=== PATIENT | female | born 1930 | race Caucasian/White ===

== ENCOUNTER 2017-12-02 20:43 | Inpatient (IN) ==
[2017-12-02] MEDS ORDERED: Naloxone Inj 0.4 MG/ML Vial IV.PUSH PRN (23:18)
[2017-12-02] MEDS ORDERED: Bisacodyl 10 MG Supp RECTAL PRN (23:18)
[2017-12-02] MEDS ORDERED: Post-op Orders (for Pharmacy) OTHER ONE (23:18)
[2017-12-02] MEDS ORDERED: Sod Chloride 0.9% Inj 1,000 ML IV.CONT SCH (23:30)
[2017-12-02] MEDS: Acetaminophen 325 MG Tablet PO PRN (23:41)
[2017-12-03] MEDS: levETIRAcetam 500 MG Tablet PO SCH ×3 (01:22→21:05)
[2017-12-03 07:11] LABS: Baso # (Auto) 0.1 th/mm3 (0.0-0.2); Baso % (Auto) 0.8 % (0.0-2.0); Eos # (Auto) 0.1 th/mm3 (0.0-0.4); Hematocrit 37.6 % (35.0-46.0); Hemoglobin 13.1 gm/dL (11.6-15.3); Lymph # (Auto) 1.6 th/mm3 (1.0-4.8); Lymph % (Auto) 17.4 % (9.0-44.0); Mean Corpuscular HGB Conc 34.8 % (32.0-36.0); Mean Corpuscular Hemoglobin 31.4 pg (27.0-34.0); Mean Corpuscular Volume 90.2 fL (80.0-100.0); Mean Platelet Volume 9.7 fL (7.0-11.0); Mono # (Auto) 0.9 th/mm3 (0.0-0.9); Mono % (Auto) 9.9 % (0.0-8.0); Neut # (Auto) 6.5 th/mm3 (1.8-7.7); Neut % (Auto) 70.9 % (16.0-70.0); Platelet Count 166 th/mm3 (150-450); Red Blood Count 4.17 mil/mm3 (4.00-5.30); Red Cell Distribution Width 13.8 % (11.6-17.2); White Blood Count 9.2 th/mm3 (4.0-11.0)
[2017-12-03 07:27] LABS: Anion Gap 10 meq/L (5-15); Blood Urea Nitrogen 11 mg/dL (7-18); Calcium 7.9 mg/dL (8.5-10.1); Carbon Dioxide 23.9 meq/L (21.0-32.0); Chloride 109 meq/L (98-107); Glomerular Filtration Rate Greater Than 89 mL/min (>89); Glucose,Random 90 mg/dL (74-106); Potassium 3.2 meq/L (3.5-5.1); Sodium 143 meq/L (136-145)
--- NOTE | 2017-12-03 09:13 | CT ---
EXAM DATE: 12/03/2017 8:45 AM EDT AGE/SEX: 87 years / Female INDICATIONS: Trauma, subdural hematoma. CLINICAL DATA: This is the patient's initial encounter. Patient reports that signs and symptoms have been present for 1 day and indicates a pain score of 4/10. MEDICAL/SURGICAL HISTORY: . Basal cell carcinoma. None. RADIATION DOSE: 35.60 CTDI (mGy) COMPARISON: No prior exams available for comparison. TECHNIQUE: CT of the head without contrast. Using automated exposure control and adjustment of the mA and/or kV according to patient size, radiation dose was kept as low as reasonably achievable to ob tain optimal diagnostic quality images. DICOM format image data is available electronically for revi ew and comparison. FINDINGS: Cerebrum: Old left basal ganglia lacunar infarct. Moderate diffuse cerebral atrophy. The ventricles are normal for degree of atrophy. No evidence of midline shift, mass lesion, hemorrhage or acute infa rction. No extraaxial fluid collections are seen. Posterior Fossa: The cerebellum and brainstem are intact. The 4th ventricle is midline. The cerebe llopontine angle is unremarkable. Extracranial: The visualized portion of the orbits is intact. Skull: Partially imaged fracture of the right zygoma, right lateral orbital wall and right lateral m axillary wall with complete opacification of the right maxillary sinus in its visualized portions. So ft tissue hematoma overlying the right face. CONCLUSION: 1. Partially imaged right facial fractures, as above. 2. No acute intracranial abnormality. . Electronically signed by: Hector Gu MD 12/03/2017 9:12 AM EDT
[2017-12-03] MEDS: Senna/Docusate Sodium 8.6/50 MG Tablet PO SCH ×2 (09:24→21:05)
[2017-12-03] MEDS: Gabapentin 300 MG Capsule PO SCH ×3 (09:25→17:38)
--- NOTE | 2017-12-03 11:14 | P.NPEVAL ---
Patient History - Record/History Review Reason for Referral: The patient is a 87 year old right handed woman status post complicated mild traumatic brain injury secondary to a fall on 12/02/2017. At the time of this entry, there has been no information entered. She is referred for baseline neurobehavioral status examination per trauma protocol to assess cognitive, behavioral and emotional aspects of the injury and to provide treatment recommendations. [facility] - History History Provided By: Patient - Medical History Medical History: Medical History (Last Updated 12/02/17 @ 21:02 by Elizabeth Monroy RN) Basal cell carcinoma Carpal tunnel syndrome FHx: total knee replacement - Surgical History Surgical History: Surgical History (Last Updated 12/02/17 @ 21:02 by Elizabeth Monroy RN) S/P rotator cuff repair - Tobacco History Second Hand Smoke Exposure: No Smoking Status: Never smoker - Alcohol History How Often Do You Have a Drink Containing Alcohol: 4 or more times a week - Substance Use History Substance History: No History of Abuse - Travel History Recent Travel in the [place] Within the Last 8 Weeks: No Recent Travel Out of the Country Within the Last 8 Weeks: No - Immunization History Tetanus Immunization: <5 Years Hx Influenza Vaccine This Season: Yes Medications Active Medications Acetaminophen (Tylenol) 650 mg PO Q6HR PRN PRN Reason: PAIN 1-10 AND/OR FEVER >101F Last Admin: 12/02/17 23:41 Dose: 650 mg Al Hydroxide/Mg Hydroxide (Milk Of Magnesia Liq) 30 ml PO Q12H PRN PRN Reason: Mild Constipation Bisacodyl (Dulcolax Supp) 10 mg RECTAL DAILY PRN PRN Reason: SEVERE CONSITIPATION Cyclobenzaprine HCl (Flexeril) 5 mg PO Q8HR [facility] Gabapentin (Neurontin) 300 mg PO TID [facility] Last Admin: 12/03/17 09:25 Dose: 300 mg Lactulose (Lactulose Liq) 30 ml PO DAILY PRN PRN Reason: SEVERE CONSITIPATION Levetiracetam (Keppra) 500 mg PO BID [facility] Last Admin: 12/03/17 09:24 Dose: 500 mg Lidocaine HCl (Lidoderm 5% Patch.12 Hr) 1 patch T-DERMAL DAILY [facility] Naloxone HCl (Narcan Inj) 0.4 mg IV.PUSH UNSCH PRN PRN Reason: SEE LABEL COMMENTS Ondansetron HCl (Zofran Inj) 4 mg IV.PUSH Q6H PRN PRN Reason: NAUSEA OR VOMITING Pantoprazole Sodium (Protonix) 40 mg PO DAILY [facility] Last Admin: 12/03/17 09:25 Dose: 40 mg Patch Removal (Remove Old Patch) 1 each T-DERMAL HS [facility] Senna/Docusate Sodium (Mary Ellen-Colace) 1 tab PO BID [facility] Last Admin: 12/03/17 09:24 Dose: 1 tab Sennosides (Senokot) 17.2 mg PO Q12H PRN PRN Reason: Moderate Constipation Mental Status Assessment - Mental Status Orientation: oriented to: Self, Place, Time, Situation Mental Status: WFL: Thought processing, Language/interactions, Attention, Learning/memory, Problem-solving, Self-regulation, Other Absent: Hallucinations, Delusions Adjustment/Coping Assessment - Observation In terms of emotional functioning, the patient demonstrated normal adjustment. This patient demonstrated no signs of agitation, impulsivity or disinhibition, nor was there remarkable evidence of a formal thought disorder or psychosis. There was no evidence of depression or anxiety. Thought content was free from suicidal, homicidal or paranoid ideation, and thought processes were logical and goal-directed. The patients mood was euthymic, and her affect was stable and appropriate. The patient appears to possess adequate insight and awareness into their situation and within the limits of this brief evaluation, adequate judgment. - Goals/Team Members LTG Status: Deferred STG Status: Deferred Team Members: Neuropsychologist Behavior - Behavior Treatment Engagement: Average - Observation Behaviorally, the patient demonstrated no signs of agitation, impulsivity or disinhibition. There was no remarkable evidence of a formal thought disorder or psychosis. - Goals LTG Status: Deferred STG Status: Deferred - Team Members Team Members: Neuropsychologist Diagnosis/Discharge Plan - Diagnosis (1) Mild neurocognitive disorder due to traumatic brain injury Status: Acute Impression: 87 year old woman s/p complicated mild TBI 2T fall on 12/02/2017. [place] Level: Level VII Disinhibition Score: 14.00 Aggression Score: 14.00 Lability Score: 14.00 Agitated Behavior Total Score: 14 Maximizing Acute Care Outcome: It is recommended that the patient be monitored for emergent behavioral impulsivity as the medical condition evolves. This patients neuropathological challenges may limit rehabilitation potential going forward, and these challenges will require specialized therapeutic skills to maximize outcome. Additionally, the patients family is experiencing ongoing issues of adjustment given the traumatic nature of the injury, and they may benefit from ongoing psychological assistance. At this point in the recovery process, the patient does have cognitive capacity as the patient is able to understand a situation and its likely consequences, and she is able to manipulate information rationally. Cognitive capacity will be assessed throughout the recovery process. - Discharge Planning Anticipated Problems: Ongoing areas of concern will include behavioral impulsivity, lack of insight and judgment, which is expected to improve with time and treatment. Treatment Plan: This clinician will continue to follow with you throughout the course of this patients critical care treatment, and I will be available to meet with the patients family/support system to facilitate their understanding and the ongoing care of their family member. The goals of neuropsychological intervention shall be both educational and supportive to the family/support system as is deemed clinically appropriate. Additionally, I would recommend a referral to Dr. Dickson for ongoing patient and family adjustment issues if they are coming to [place]. Thank you for the opportunity to assist in this patients care. Josh Card, Ph.D., ABPP Board Certified in Clinical Neuropsychology [place] [employer] [place] Licensed Psychologist #[id number]
--- NOTE | 2017-12-03 11:38 | P.CONNS ---
History of Present Illness Service: Neurosurgery Consult date: 12/03/17 Requesting Physician: Atif Beckwith (Trauma surgery) Reason for Consult: Traumatic brain injury Primary Care Provider: UNKNOWN History of Present Illness: 87-year-old female transferred to [facility] from an outside facility after a fall with reportedly a small intracranial hemorrhage. Patient relates that she fell but is amnestic of the event. She has right periorbital ecchymosis and swelling with some tenderness along the temporal and zygomatic arch area. She also has right chest wall pain. Denies any neck or back pain or any numbness or paresthesias in the upper lower extremities. No visual loss or nausea vomiting. CT scan of the head obtained today does not reveal any intracranial hemorrhage with fractures involving the right orbital lateral wall and zygomatic arch. Review of Systems Constitutional: Reports headache(s), Denies anorexia, Denies body ache(s), Denies chills, Denies daytime sleepiness, Denies excessive sweating, Denies fatigue, Denies fever(s), Denies increased appetite, Denies lack of energy, Denies malaise, Denies night sweats, Denies weakness, Denies weight gain, Denies weight loss, Denies other Eyes: Denies blind spots, Denies blurry vision, Denies bulging eyes, Denies change in vision, Denies double vision, Denies discharge, Denies dry eyes, Denies floaters, Denies irritation, Denies itchy eyes, Denies loss of vision, Denies pain, Denies requires corrective lenses, Denies sensitivity to light, Denies other Ears, Nose, Mouth, and Throat: Denies abnormal hearing, Denies bleeding gums, Denies bad breath, Denies change in voice, Denies dental pain, Denies difficulty swallowing, Denies dizziness, Denies dry mouth, Denies ear discharge , Denies ear pain, Denies facial pain, Denies headache(s), Denies hearing loss, Denies hoarseness, Denies lip swelling, Denies nosebleed, Denies mouth lesions, Denies mouth pain, Denies nasal congestion, Denies nasal discharge, Denies nasal obstruction, Denies nasal trauma, Denies neck lump, Denies neck pain, Denies nose pain, Denies pain with swallowing, Denies poor balance, Denies post nasal drip, Denies ringing in the ears, Denies sinus pain, Denies sinus pressure , Denies sore throat, Denies throat swelling, Denies tongue swelling, Denies other Cardiovascular: Reports chest pain at rest (Right chest wall pain related to rib fractures), Denies chest pain, Denies chest pain with activity, Denies excessive sweating, Denies fainting, Denies fast heart rate, Denies foot swelling, Denies generalized swelling, Denies irregular heart rhythm, Denies leg pain with activity, Denies leg sores, Denies leg swelling, Denies lightheadedness, Denies radiating jaw, neck or arm pain, Denies rapid, pounding , or irregular heartbeat, Denies shortness of breath, Denies shortness of breath with activity, Denies shortness of breath when lying down, Denies shortness of breath causing sudden awakening, Denies slow heart rate, Denies other Respiratory: Denies change in phlegm color, Denies chest congestion, Denies cough, Denies coughing up blood, Denies excessive phlegm production, Denies pain on inspiration, Denies pain with cough, Denies shortness of breath, Denies shortness of breath with activity, Denies snoring, Denies stridor, Denies wheezing, Denies other Gastrointestinal: Denies abdominal pain, Denies belching, Denies black, tarry stools, Denies bloating, Denies bright, red blood in stools, Denies change in bowel habits, Denies constant urge to pass stool, Denies change in stools, Denies coffee ground vomit, Denies constipation, Denies cramping, Denies difficulty swallowing, Denies excessive passing of gas, Denies feeling full early, Denies heartburn, Denies incontinent of stools, Denies loose stools, Denies nausea, Denies pain with swallowing, Denies vomiting, Denies vomiting blood, Denies other Genitourinary: Denies abnormal periods, Denies abnormal vaginal bleeding, Denies absent period, Denies bleeding between periods, Denies blood in urine, Denies difficulty starting urination, Denies difficulty urinating, Denies dribbling after urination, Denies frequent nighttime urination, Denies genital itching, Denies genital lesions, Denies heavy periods, Denies hot flashes, Denies light periods, Denies nipple discharge, Denies painful intercourse, Denies painful periods, Denies painful urination, Denies pelvic pain, Denies prolapse symptoms, Denies sexual problems, Denies side pain, Denies urinary incontinence, Denies urinary urgency, Denies vaginal discharge, Denies vaginal dryness, Denies vaginal odor, Denies vaginal itching, Denies other Musculoskeletal: Denies abnormal walking, Denies back pain, Denies body aches, Denies decreased muscle mass, Denies deformity, Denies joint pain, Denies joint swelling, Denies limited joint movement, Denies loss of height, Denies muscle cramps, Denies muscle weakness, Denies neck pain, Denies numbness, Denies radiating pain into limb, Denies stiffness, Denies tingling, Denies other Skin/Breast: Denies acne, Denies bleeding lesions, Denies boil, Denies breast swelling, Denies breast skin changes, Denies breast pain, Denies breast lump, Denies change in breast shape, Denies change in hair, Denies change in skin color, Denies changing lesions, Denies dry skin, Denies excessive hair growth, Denies hair loss, Denies itching, Denies lesions, Denies nail changes, Denies new lesions, Denies nipple discharge, Denies non-healing lesions, Denies redness , Denies sensitivity to light, Denies rash, Denies skin pain, Denies skin ulcer , Denies sores, Denies stretch turcios, Denies unusual bruising, Denies wounds, Denies yellowing of the skin, Denies other Neurologic: Denies abnormal hearing, Denies abnormal movements, Denies abnormal speech, Denies abnormal walking, Denies behavioral changes, Denies burning sensations, Denies confusion, Denies dizziness, Denies fainting, Denies frequent falls, Denies headache(s), Denies lack of coordination, Denies localized weakness, Denies loss of vision, Denies memory loss, Denies numbness, Denies other visual disturbances, Denies radiating pain, Denies restless legs, Denies convulsions, Denies seizure-like activity, Denies sensory deficit, Denies tingling, Denies tingling/numbness/burning sensations, Denies tremor(s), Denies unsteadiness, Denies weakness, Denies other Psychiatric: Denies abnormal sleep pattern, Denies anxiety, Denies behavioral changes, Denies change in appetite, Denies change in sex drive, Denies confusion , Denies depression, Denies difficulty concentrating, Denies hearing things others do not hear, Denies hopelessness, Denies irritability, Denies lack of enjoyment, Denies memory loss, Denies mood swings, Denies panic attacks, Denies paranoia, Denies seeing things others do not see, Denies sensing things others do not sense, Denies tactile hallucinations, Denies thoughts of hurting/killing others, Denies thoughts of hurting/killing yourself, Denies other Endocrine: Denies cold intolerance, Denies excessive sweating, Denies flushing, Denies heat intolerance, Denies increased hunger, Denies increased thirst, Denies increased urination, Denies rapid, pounding, or irregular heartbeat, Denies other Hematologic/Lymphatic: Denies easy bleeding, Denies easy bruising, Denies enlarged lymph nodes, Denies other Allergic/Immunologic: Denies GI upset with certain foods, Denies hives, Denies itchy eyes, Denies lip swelling, Denies seasonal runny nose, Denies throat swelling, Denies tongue swelling, Denies wheezing, Denies other PMFSH - History History Provided By: Patient - Medical History Medical History: Medical History (Last Reviewed 12/03/17 @ 11:31 by Santiago Castaneda MD) Basal cell carcinoma Carpal tunnel syndrome FHx: total knee replacement - Surgical History Surgical History: Surgical History (Last Reviewed 12/03/17 @ 11:31 by Santiago Castaneda MD) S/P rotator cuff repair - Tobacco History Second Hand Smoke Exposure: No Smoking Status: Never smoker - Alcohol History How Often Do You Have a Drink Containing Alcohol: 4 or more times a week - Substance Use History Substance History: No History of Abuse - Travel History Recent Travel in the [place] Within the Last 8 Weeks: No Recent Travel Out of the Country Within the Last 8 Weeks: No - Immunization History Tetanus Immunization: <5 Years Hx Influenza Vaccine This Season: Yes Medications and Allergies Active Medications: Active Medications Acetaminophen (Tylenol) 650 mg PO Q6HR PRN PRN Reason: PAIN 1-10 AND/OR FEVER >101F Last Admin: 12/02/17 23:41 Dose: 650 mg Al Hydroxide/Mg Hydroxide (Milk Of Magnesia Liq) 30 ml PO Q12H PRN PRN Reason: Mild Constipation Bisacodyl (Dulcolax Supp) 10 mg RECTAL DAILY PRN PRN Reason: SEVERE CONSITIPATION Cyclobenzaprine HCl (Flexeril) 5 mg PO Q8HR [facility] Gabapentin (Neurontin) 300 mg PO TID [facility] Last Admin: 12/03/17 09:25 Dose: 300 mg Lactulose (Lactulose Liq) 30 ml PO DAILY PRN PRN Reason: SEVERE CONSITIPATION Levetiracetam (Keppra) 500 mg PO BID [facility] Last Admin: 12/03/17 09:24 Dose: 500 mg Lidocaine HCl (Lidoderm 5% Patch.12 Hr) 1 patch T-DERMAL DAILY [facility] Naloxone HCl (Narcan Inj) 0.4 mg IV.PUSH UNSCH PRN PRN Reason: SEE LABEL COMMENTS Ondansetron HCl (Zofran Inj) 4 mg IV.PUSH Q6H PRN PRN Reason: NAUSEA OR VOMITING Pantoprazole Sodium (Protonix) 40 mg PO DAILY [facility] Last Admin: 12/03/17 09:25 Dose: 40 mg Patch Removal (Remove Old Patch) 1 each T-DERMAL HS [facility] Senna/Docusate Sodium (Mary Ellen-Colace) 1 tab PO BID [facility] Last Admin: 12/03/17 09:24 Dose: 1 tab Sennosides (Senokot) 17.2 mg PO Q12H PRN PRN Reason: Moderate Constipation Allergies Allergy/AdvReac Type Severity Reaction Status Date / Time hydromorphone [From Dilaudid] AdvReac Nausea/Vomi Verified 12/02/17 21:03 ting meperidine [From Demerol] AdvReac Nausea/Vomi Verified 12/02/17 21:03 ting morphine AdvReac Nausea/Vomi Verified 12/02/17 21:03 ting Home Medications Medication Instructions Recorded Confirmed Type Cq 10 1 tab PO DAILY 12/02/17 History aspirin [Aspir-81] 81 mg PO DAILY 12/02/17 12/02/17 History biotin 5 mg PO DAILY 12/02/17 12/02/17 History calcium carbonate [Calcium 500] 500 mg PO DAILY 12/02/17 12/02/17 History cholecalciferol (vitamin D3) 5,000 unit PO DAILY 12/02/17 12/02/17 History [Vitamin D3] gabapentin 300 mg PO TID 12/02/17 12/02/17 History Exam Vital signs: Vital Signs 12/02/17 20:57 12/02/17 21:10 12/03/17 00:00 Temperature 98.3 F 98.6 F Pulse Rate 75 62 Respiratory Rate 20 21 Blood Pressure 166/68 H 166/88 H 143/74 H Pulse Oximetry 98 96 12/03/17 00:11 12/03/17 04:00 12/03/17 08:00 Temperature 98.5 F 98.0 F Pulse Rate 67 60 Respiratory Rate 16 20 24 Blood Pressure 112/66 129/68 Pulse Oximetry 95 94 L Intake & Output 12/02/17 12/03/17 12/03/17 18:59 06:59 18:59 Intake Total 460 / 460 Balance 460 / 460 Weight 59.5 kg Intake: IV 460 / 460 NS Inj 1,000 ML @ 60 mls/hr IV. 460 / 460 CONT .[id number] [facility] Rx#:[id number] Oral 0 / 0 Other: Weight On Admission 59.6 kg - Constitutional no acute distress, obese - Routine HEENT Exam Head: Present: abrasion, hematoma, scalp tenderness, facial swelling Eye: Present: EOMI, PERRL, periorbital ecchymosis (right), periorbital swelling ENT: Present: mucous membranes moist, oropharynx clear, nares patent, external ear normal - Routine Neck Exam Present: supple, full ROM - Routine Chest/Breast/Axilla Exam Chest wall: Present: tenderness - Routine Respiratory Exam Present: CTA bilaterally - Routine Cardiovascular Exam Present: RRR, S1, S2 - Routine Abdominal Exam Present: soft, normoactive bowel sounds - Routine Extremities Exam Present: full ROM - Routine Skin Exam Present: intact, ecchymosis - Routine Neurological Exam Present: oriented X3, CN II-XII intact, plantar reflex, moving all extremities, normal speech Results - Laboratory Findings CBC and BMP: 12/03/17 06:12 12/03/17 06:12 Abnormal lab findings: Abnormal Labs 12/03/17 12/03/17 06:12 06:12 Neut % (Auto) 70.9 H [place] % (Auto) 9.9 H Potassium 3.2 L Chloride 109 H Calcium 7.9 L - Diagnostic Findings Additional findings: Impressions Head CT 12/03/17 00:00 CONCLUSION: 1. Partially imaged right facial fractures, as above. 2. No acute intracranial abnormality. . Assessment and Plan - Assessment (1) Concussion Code(s): S06.0X9A - Concussion with loss of consciousness of unspecified duration, initial encounter Status: Acute (2) Fracture, facial bones Code(s): S02.92XA - Unspecified fracture of facial bones, initial encounter for closed fracture Status: Acute (3) Orbital fracture Code(s): S02.80XA - Fracture of other specified skull and facial bones, unspecified side, initial encounter for closed fracture Status: Acute - Plan 87-year-old lady transferred to [facility] under the trauma surgery service for facial fractures questionable intracranial hemorrhage and rib fractures. Follow-up CT scan of the head does not reveal any intracranial hemorrhage with a nondisplaced right lateral orbital wall and zygomatic arch fractures. She is stable from a neurosurgical standpoint and does not require any intervention. Further management as per the trauma surgery service. Discussed with patient and family members at bedside. (1) Concussion Qualifiers: Encounter type: initial encounter Loss of consciousness presence/duration: with LOC of unspecified duration Qualified Code(s): S06.0X9A - Concussion with loss of consciousness of unspecified duration, initial encounter (2) Fracture, facial bones Qualifiers: Encounter type: initial encounter Facial bone/location: zygomatic arch Laterality: right (3) Orbital fracture Qualifiers: Encounter type: initial encounter Fracture type: closed Qualified Code(s): S02.80XA - Fracture of other specified skull and facial bones, unspecified side , initial encounter for closed fracture
[2017-12-03] MEDS: Acetaminophen 325 MG Tablet PO PRN ×2 (11:58→21:05)
--- NOTE | 2017-12-03 12:07 | P.PNCC ---
Subjective Brief History: SAUK-SUIATTLE: This is an 87-year-old female who sustained a fall. She was a trauma transfer from [facility]. INJURIES: RIGHT zygoma fx RIGHT lateral orbital wall fx RIGHT maxillary wall fx SAH Rib fx (5,6,7,8) PMHx: 24 Hour Review/Hospital Course: 12/03/2017 Patient sitting up in bed. No distress noted. Patient is alert and oriented. 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 Patient tells that she is still working full-time. Patient is hemodynamically stable with a stable CT brain, therefore she may transferred to the [facility] floor once a bed is available. Objective Vital Signs / I&O: Vital Signs 12/02/17 20:57 12/02/17 21:10 12/03/17 00:00 Temperature 98.3 F 98.6 F Pulse Rate 75 62 Respiratory Rate 20 21 Blood Pressure 166/68 H 166/88 H 143/74 H Pulse Oximetry 98 96 12/03/17 00:11 12/03/17 04:00 12/03/17 08:00 Temperature 98.5 F 98.0 F Pulse Rate 67 60 Respiratory Rate 16 20 24 Blood Pressure 112/66 129/68 Pulse Oximetry 95 94 L Intake & Output 12/02/17 12/03/17 12/03/17 18:59 06:59 18:59 Intake Total 460 / 460 Balance 460 / 460 Weight 59.5 kg Intake: IV 460 / 460 NS Inj 1,000 ML @ 60 mls/hr IV. 460 / 460 CONT .[id number] [facility] Rx#:[id number] Oral 0 / 0 Other: Weight On Admission 59.6 kg Result Diagrams: 12/03/17 06:12 12/03/17 06:12 Imaging: Impressions Head CT 12/03/17 00:00 CONCLUSION: 1. Partially imaged right facial fractures, as above. 2. No acute intracranial abnormality. . Disinhibition Score: 14.00 Aggression Score: 14.00 Lability Score: 14.00 Agitated Behavior Total Score: 14 Objective Remarks: GENERAL: This is a 87-year-old female sitting up in bed. No distress noted. SKIN: Warm and dry. HEAD: Normocephalic. Right eye with swelling and ecchymosis noted. EYES: PERRLA ENT: No nasal bleeding or discharge. Mucous membranes pink and moist. NECK: Trachea midline. No JVD. CARDIOVASCULAR: Regular rate and rhythm. RESPIRATORY: No accessory muscle use. Lungs are clear to auscultation. Breath sounds equal bilaterally. No distress or dyspnea. GASTROINTESTINAL: BS + x 4 quads. Abdomen soft, non-tender, nondistended. MUSCULOSKELETAL: Extremities without cyanosis, or edema. + peripheral pulses x 4 extremities. Warm with good capillary refill and sensation. MAEW. NEUROLOGICAL: Awake and alert. Normal speech and pattern. Assessment and Plan Plan: SAUK-SUI[place]LE: This is a 87-year-old female who sustained a fall. She is amnesic to events. She is a trauma transfer from [facility]. INJURIES: RIGHT zygoma fx RIGHT lateral orbital wall fx RIGHT maxillary wall fx SAH Rib fx (5,6,7,8) PMHx Procedures: Consults: Neurosurgery. OMFS. Neuropsych. Case management. Diet: Regular diet. Tolerating po diet. Encourage good po intake with each meal. Pulmonary: Encourage good pulmonary toileting. IS at bedside and pt encouraged to use. Rationale for use explained to patient, and verbalized understanding. PAIN Management: Tylenol 650 mg q6h (patient does not want to take narcotic pain meds) . Flexeril 5 mg q8h. Neurontin 300 mg TID. Lidoderm patch. Activity: OOB. PT and OT ordered. GI prophylaxis: Protonix 40 mg PO Bowel regimen: Mary Ellen-colace. MOM PRN. Lactulose PRN. Senna PRN. Bisacodyl PRN. LBM: o DVT prophylaxis: Mechanical VTE with SCDs. Chemical management contraindicated in light of subarachnoid hemorrhage. DC Planning: Case management consulted for assistance with final discharge disposition. Awaiting PT and OT assessment. Emotional support provided to patient and family at bedside and plan of care discussed. Discussed with RN at bedside during trauma rounds. Discussed pt condition and plan of care with collaborating trauma surgeon. Patient is hemodynamically stable in the ICU, and therefore can be transferred managed on the med/surg floor. The trauma team will round each day, and evaluate plan of care on a daily basis. 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 Moderate atrophy. No hemorrhage noted. CT brain for any change in neurological status Supportive care Seizure precautions Seizure prophylaxis with Keppra p.o. Encourage out of bed PT and OT ordered Pain management Bowel regimen Rib fx (5,6,7,8) O2 nasal cannula as needed Supportive care Aggressive pulmonary toileting Pain management Chest x-ray as needed Encourage out of bed PT and OT ordered
--- NOTE | 2017-12-03 13:21 | MH ---
cc: Atif Beckwith MD DATE OF ADMISSION: 12/02/2017 HISTORY OF PRESENT ILLNESS: This 87-year-old lady fell from a standing position while walking on the street. She was transferred to [facility] and we were asked to transfer the patient to our institution, which was readily done. The patient apparently is amnestic to the event. She was coming back from the [facility], I guess, and does not remember anything else. She is otherwise very functional. The patient was immediately transferred from ER to ER and admitted to ICU for observation. PAST MEDICAL HISTORY: Carpal tunnel syndrome, arthritis and a shoulder injury. PAST SURGICAL HISTORY: Right rotator cuff repair and total knee replacement, as well as carpal tunnel release. SOCIAL HISTORY: The patient does not smoke at all. Drinks socially a little. PHYSICAL EXAMINATION: GENERAL: Reveals a very functional 87-year-old lady who still works. HEENT: Normocephalic. Trauma to the head consisting of considerable swelling of her right periorbital area and right face consistent with a zygoma fracture. Pupils equally reactive. Extraocular muscles intact. No hemotympanum. No judge sign. No raccoon's eyes. NECK: C-collar is carefully removed. The patient has bilateral carotid pulses. No bruits. No masses. CHEST: Bilateral breath sounds, decreased over both lungs brown consistent with some degree of senile emphysema; however, due to the fact that the patient never smoked, this is minimal. HEART: Regular rhythm. The patient is hemodynamically stable. ABDOMEN: Soft. Active bowel sounds. PELVIC: Pelvis stable. EXTREMITIES: The patient has bilateral femoral, popliteal, dorsalis pedis and posterior tibial pulses. NEUROLOGIC: The patient is fully intact. She is awake, alert and oriented. Does not remember the accident but everything else around she does remember. Methodically, she is fully intact. No lateralization. No drift. Deep tendon reflexes normal. PLAN: The patient will be admitted to Trauma Service to the ICU. Final injuries noted: A right zygoma fracture, a tiny right frontal bleed and 5th, 6th and 7th rib fractures. Critical care 32 minutes on patient. MD JENNIFER Carrera/wilian , 01:01 PM , 01:12 PM
--- NOTE | 2017-12-03 18:10 | MB ---
cc: Elier Penny DDS DATE: 12/03/2017 REASON FOR CONSULTATION: I was asked to evaluate a 88-year-old pleasant lady who suffered a fall sustaining a fracture of her right zygoma and her maxillary sinus. They are both minimally displaced, does not require surgical intervention at this time due to her age and health. She will heal fine. She has a little bit of a right V2 paresthesia underneath and I told her it may get better with time, may stay numb. Her mandible is stable. Her pupils are equal, round, reactive to light and accommodation. Extraocular muscles are intact. Her vision is grossly intact. She can be discharged and I will follow up on an outpatient basis. VICENTE Enciso/johnny , 05:25 PM , 05:32 PM
[2017-12-04] MEDS: Acetaminophen 325 MG Tablet PO PRN (05:28)
[2017-12-04 06:53] LABS: Baso % (Auto) 0.4 % (0.0-2.0); Eos # (Auto) 0.1 th/mm3 (0.0-0.4); Hematocrit 39.5 % (35.0-46.0); Hemoglobin 13.3 gm/dL (11.6-15.3); Lymph # (Auto) 1.4 th/mm3 (1.0-4.8); Lymph % (Auto) 13.4 % (9.0-44.0); Mean Corpuscular HGB Conc 33.7 % (32.0-36.0); Mean Corpuscular Hemoglobin 30.8 pg (27.0-34.0); Mean Corpuscular Volume 91.3 fL (80.0-100.0); Mean Platelet Volume 9.4 fL (7.0-11.0); Mono # (Auto) 0.9 th/mm3 (0.0-0.9); Neut # (Auto) 7.7 th/mm3 (1.8-7.7); Neut % (Auto) 76.2 % (16.0-70.0); Platelet Count 188 th/mm3 (150-450); Red Blood Count 4.32 mil/mm3 (4.00-5.30); Red Cell Distribution Width 13.7 % (11.6-17.2); White Blood Count 10.1 th/mm3 (4.0-11.0)
--- NOTE | 2017-12-04 07:05 | XR ---
EXAM DATE: 12/04/2017 6:00 AM EDT AGE/SEX: 87 years / Female INDICATIONS: Chest, back and bilateral rib fan CLINICAL DATA: This is the patient's subsequent encounter. Patient reports that signs and symptoms h ave been present for 3 days and indicates a pain score of 7/10. MEDICAL/SURGICAL HISTORY: . prior humerus fracture . ORIF humerus COMPARISON: No prior exams available for comparison. FINDINGS: Lungs are under aerated. Heart is enlarged. Minimal bibasilar parenchymal changes worse in the left M oderate interstitial prominence is evident. Extensive degenerative changes about the right shoulder. Total shoulder arthroplasty on the left. No pneumothorax. CONCLUSION: Moderate congestive failure without pneumothorax. Parenchymal changes left base nonspecific Electronically signed by: Bull Rodriguez MD 12/04/2017 7:04 AM EDT
[2017-12-04 07:20] LABS: Alanine Aminotransferase 17 U/L (10-53); Albumin 2.9 g/dL (3.4-5.0); Anion Gap 8 meq/L (5-15); Blood Urea Nitrogen 11 mg/dL (7-18); Calcium 7.7 mg/dL (8.5-10.1); Carbon Dioxide 23.8 meq/L (21.0-32.0); Chloride 111 meq/L (98-107); Glomerular Filtration Rate 87 mL/min (>89); Glucose,Random 87 mg/dL (74-106); Potassium 3.4 meq/L (3.5-5.1); Sodium 143 meq/L (136-145)
[2017-12-04 07:21] LABS: Aspartate Aminotransferase 17 U/L (15-37)
[2017-12-04 07:23] LABS: Alkaline Phosphatase 71 U/L (45-117); Total Protein 6.2 g/dL (6.4-8.2)
[2017-12-04] MEDS: Gabapentin 300 MG Capsule PO SCH (08:38)
[2017-12-04] MEDS: levETIRAcetam 500 MG Tablet PO SCH (08:39)
[2017-12-04] MEDS: Senna/Docusate Sodium 8.6/50 MG Tablet PO SCH (08:39)
[2017-12-04 09:00] VITALS: RESP 20; O2SAT 94
[2017-12-04] MEDS ORDERED: Lidocaine 5% Patch T-DERMAL SCH (09:00)
[2017-12-04 13:00] VITALS: BP 141/85; PULSE 67; TEMP 97.3
--- NOTE | 2017-12-04 13:10 | P.DS ---
<Cinthia Faye F - Last Filed: 12/04/17 13:10> Date of admission: 12/02/17 22:32 Primary care physician: UNKNOWN Attending physician on discharge: Zuly Isidro Anticipated date of discharge: 12/04/17 Brief History from admission: Fall. DS: Diagnosis - Discharge Diagnosis (1) SAH (subarachnoid hemorrhage) Status: Acute (2) Mild neurocognitive disorder due to traumatic brain injury Status: Acute (3) Concussion Status: Acute (4) Fracture, facial bones Status: Acute (5) Orbital fracture Status: Acute DS: Summary Hospital Course: FLANDREAU: This is a 87-year-old female who sustained a fall while walking down the street to her [facility]. She is a trauma transfer from [facility]. INJURIES: RIGHT zygoma fx RIGHT lateral orbital wall fx RIGHT maxillary wall fx SAH Rib fx (5,6,7,8) PMHx Procedures: Consults: Neurosurgery. OMFS. Neuropsych. Case management. Patient's son would really like the patient to attend rehab, as he does not feel like she is strong/safe enough to bring home at this point. The patient is now tolerating a po diet. Eating and drinking well. Pain is being managed well with PO pain medications, all hospital medications will continue at rehab (NO driving while taking narcotic pain medication enforced to patient.) We have recommended to patient to continue with stool softeners while taking narcotic pain medications to prevent constipation. Pt has been participating in PT and OT while admitted at [facility] and has been ambulating with their assistance and independently. PT and OT will continue at rehab. All follow up appointments have been provided and discussed with the patient. It is recommended that the patient keeps all his follow up appointments for continued recovery. Patient's condition and plan of care discussed with collaborating trauma surgeon. He is agreeable to plan for discharge today. Therefore, the patient is stable to be safely discharged to [facility] from a trauma surgery standpoint. Thank you for allowing us to participate in her care. We wish Saharae the best in her recovery. 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 Moderate atrophy. No hemorrhage noted. CT brain for any change in neurological status Supportive care Seizure precautions Seizure prophylaxis with Keppra p.o. times 1 week Encourage out of bed PT and OT ordered Pain management Bowel regimen Rib fx (5,6,7,8) O2 nasal cannula as needed Supportive care Aggressive pulmonary toileting Pain management Chest x-ray as needed -stable this a.m. Encourage out of bed PT and OT ordered - Time Spent with Patient Total time spent providing and/or coordinating discharge services: Greater than 30 minutes - Quality: VTE Deep Vein Thrombosis/Pulmonary Embolism Present on Admission: No Exam Vital signs: Vital Signs 12/03/17 16:00 12/03/17 20:00 12/04/17 00:00 Temperature 97.9 F 97.6 F 98.2 F Pulse Rate 58 L 65 75 Respiratory Rate 21 18 18 Blood Pressure 135/63 141/71 H 155/76 H Pulse Oximetry 94 L 94 L 92 L 12/04/17 04:00 12/04/17 08:00 12/04/17 12:00 Temperature 97.9 F 97.8 F 97.3 F L Pulse Rate 76 88 67 Respiratory Rate 18 20 20 Blood Pressure 150/83 H 151/84 H 141/85 H Pulse Oximetry 92 L 94 L 94 L Intake & Output 12/03/17 12/04/17 12/04/17 18:59 06:59 18:59 Intake Total 1060 / 1060 480 / 480 Balance 1060 / 1060 480 / 480 Intake: IV 460 / 460 NS Inj 1,000 ML @ 60 mls/hr IV. 460 / 460 CONT .[id number] [facility] Rx#:[id number] Oral 600 / 600 480 / 480 Other: # Voids 2 1 Date of Last Bowel Movement 12/02/17 12/02/17 Narrative: GENERAL: This is a 87-year-old female sitting up in bed. No distress noted. SKIN: Warm and dry. HEAD: Normocephalic. Right eye with swelling and ecchymosis noted, however swelling decreased compared to yesterday EYES: PERRLA ENT: No nasal bleeding or discharge. Mucous membranes pink and moist. NECK: Trachea midline. No JVD. CARDIOVASCULAR: Regular rate and rhythm. RESPIRATORY: No accessory muscle use. Lungs are clear to auscultation. Breath sounds equal bilaterally. No distress or dyspnea. GASTROINTESTINAL: BS + x 4 quads. Abdomen soft, non-tender, nondistended. MUSCULOSKELETAL: Extremities without cyanosis, or edema. + peripheral pulses x 4 extremities. Warm with good capillary refill and sensation. MAEW. NEUROLOGICAL: Awake and alert. Normal speech and pattern. Results Procedures completed during hospitalization: . Labs on day of discharge: Labs from last 24 hours 12/04/17 12/04/17 04:42 04:42 WBC 10.1 RBC 4.32 Hgb 13.3 Hct 39.5 MCV 91.3 MCH 30.8 MCHC 33.7 RDW 13.7 Plt Count 188 MPV 9.4 Neut % (Auto) 76.2 H Lymph % (Auto) 13.4 Sullivan % (Auto) 9.0 H Eos % (Auto) 1.0 Baso % (Auto) 0.4 Neut # (Auto) 7.7 Lymph # (Auto) 1.4 Sullivan # (Auto) 0.9 Eos # (Auto) 0.1 Baso # (Auto) 0.0 WBC Differential . Differential Comment Auto diff final Sodium 143 Potassium 3.4 L Chloride 111 H Carbon Dioxide 23.8 Anion Gap 8 BUN 11 Creatinine 0.64 Estimated GFR 87 L Random Glucose 87 Calcium 7.7 L Total Bilirubin 0.9 AST 17 ALT 17 Alkaline Phosphatase 71 Total Protein 6.2 L Albumin 2.9 L - Impressions ITS Impressions Head CT 12/03/17 00:00 CONCLUSION: 1. Partially imaged right facial fractures, as above. 2. No acute intracranial abnormality. . Chest X-Ray 12/04/17 06:00 CONCLUSION: Moderate congestive failure without pneumothorax. Parenchymal changes left base nonspecific <Zuly Isidro - Last Filed: 12/04/17 20:36> Date of admission: 12/02/17 22:32 Primary care physician: UNKNOWN DS: Summary - Time Spent with Patient Total time spent providing and/or coordinating discharge services: Exam Vital signs: Vital Signs 12/04/17 00:00 12/04/17 04:00 12/04/17 08:00 Temperature 98.2 F 97.9 F 97.8 F Pulse Rate 75 76 88 Respiratory Rate 18 18 20 Blood Pressure 155/76 H 150/83 H 151/84 H Pulse Oximetry 92 L 92 L 94 L 12/04/17 12:00 Temperature 97.3 F L Pulse Rate 67 Respiratory Rate 20 Blood Pressure 141/85 H Pulse Oximetry 94 L Intake & Output 12/04/17 12/04/17 12/05/17 06:59 18:59 06:59 Intake Total 480 / 480 Balance 480 / 480 Intake: Oral 480 / 480 Other: # Voids 1 Date of Last Bowel Movement 12/02/17 12/02/17 Results Labs on day of discharge: Labs from last 24 hours 12/04/17 12/04/17 04:42 04:42 WBC 10.1 RBC 4.32 Hgb 13.3 Hct 39.5 MCV 91.3 MCH 30.8 MCHC 33.7 RDW 13.7 Plt Count 188 MPV 9.4 Neut % (Auto) 76.2 H Lymph % (Auto) 13.4 Sullivan % (Auto) 9.0 H Eos % (Auto) 1.0 Baso % (Auto) 0.4 Neut # (Auto) 7.7 Lymph # (Auto) 1.4 Sullivan # (Auto) 0.9 Eos # (Auto) 0.1 Baso # (Auto) 0.0 WBC Differential . Differential Comment Auto diff final Sodium 143 Potassium 3.4 L Chloride 111 H Carbon Dioxide 23.8 Anion Gap 8 BUN 11 Creatinine 0.64 Estimated GFR 87 L Random Glucose 87 Calcium 7.7 L Total Bilirubin 0.9 AST 17 ALT 17 Alkaline Phosphatase 71 Total Protein 6.2 L Albumin 2.9 L - Impressions ITS Impressions Head CT 12/03/17 00:00 CONCLUSION: 1. Partially imaged right facial fractures, as above. 2. No acute intracranial abnormality. . Chest X-Ray 12/04/17 06:00 CONCLUSION: Moderate congestive failure without pneumothorax. Parenchymal changes left base nonspecific Addendum Patient is overall stable ambulating well pain is controlled patient will be discharged Discharge Plan - Discharge Order Discharge Orders: Discharge Order (Routine); Ordered 12/04/17 Ordered By: Cinthia Faye - Discharge Details Anticipated Discharge Date: 12/04/17 - Physicians Team Primary Care Provider: UNKNOWN, Attending Provider: Atif Beckwith Other Providers: Santiago Castaneda MD ; Raciel Astorga MD ; West Conley MD ; [employer] [facility] ; Todd Sotelo MD ; Cinthia Faye ARNP ; Murray Obrien MD ; Zuly Isidro MD ; Lucy Roberson ARNP ; Atif Beckwith MD ; Josh Card, PhD ; Elier Penny DDS
--- NOTE | 2017-12-05 18:17 | XR ---
EXAM DATE: 12/05/2017 12:00 AM EDT AGE/SEX: 87 years / Female INDICATIONS: Right shoulder pain post fall. CLINICAL DATA: This is the patient's initial encounter. Patient reports that signs and symptoms have been present for 3 days and indicates a pain score of 5/10. MEDICAL/SURGICAL HISTORY: . Basal cell carcinoma. Carpal tunnel syndrome. . Total knee replace ment. Rotator cuff repair. Left total shoulder. COMPARISON: No prior exams available for comparison. FINDINGS: 2 views of the right shoulder. High riding humeral head abutting the undersurface of the acromion. Mo derate-sized humeral head osteophytes. Moderate diffuse sclerosis in the subchondral region of the guerra perior humeral head. No evidence of fracture. Chronic appearing bone defect of the distal clavicle. CONCLUSION: 1. Evidence of rotator cuff tendon tear with high riding humeral head abutting the undersurface of t he acromion. 2. Moderate glenohumeral joint arthrosis. 3. No evidence of fracture. Electronically signed by: Jaison Berger MD 12/05/2017 4:40 PM EDT
== END 2017-12-04 12:18 ==
LOC: NEPC 20:43 → NEDA 22:32 → N03 12-03 00:22 → N05 12-03 19:20
PROVIDERS: ADMIT Surgery; ATTEND Surgery